=== PATIENT | female | born 1960 | race Caucasian/White ===

== ENCOUNTER 2017-08-28 14:30 | Outpatient (RCR) | payer BC, SELFPAY | END 2017-08-28 23:59 | LOC: OT 14:30 | PROVIDERS: PCP Internal Medicine Adolescent Medicine; Visit Provider Internal Medicine Adolescent Medicine | DX: S46.812A Strain of other muscles, fascia and tendons at shoulder and upper arm level, left arm, initial encounter (principal) | CPT/HCPCS: 97014; 97033; 97110; 97165; G0283 ==

== ENCOUNTER 2017-09-08 15:30 | Outpatient (RCR) | payer BC, SELFPAY | END 2017-09-08 23:59 | LOC: OT 15:30 | PROVIDERS: PCP Internal Medicine Adolescent Medicine; Visit Provider Nurse Practitioner Family | DX: S46.812A Strain of other muscles, fascia and tendons at shoulder and upper arm level, left arm, initial encounter (principal) | CPT/HCPCS: 97014; 97110; G0283 ==